=== PATIENT | male | born 1945 | race Caucasian/White ===

== ENCOUNTER 2017-09-18 15:16 | Inpatient (IN) | payer MEDICARE, MEDICAID ==
[~2017-09-18] VITALS: Ht 182.9 cm; Wt 115.5 kg
--- NOTE | ~2017-09-18 | HP ---
PATIENT: RIGOBERTO JOHNSON MEDICAL RECORD: [id number] ACCOUNT: [id number] LOCATION:[facility].2109 : 44 ADMISSION DATE: 09/18/17 HISTORY AND PHYSICAL EXAMINATION ADMITTING PHYSICIAN: Mark Muller MD REASON FOR ADMISSION: Chest pain and fatigue. HISTORY OF PRESENT ILLNESS: The patient is a 71-year-old male with history of metabolic syndrome, ALISTAIR, and essential hypertension. The patient states for the last 6 months he has had fatigue, walking for 2 miles a day for the last year, but has been getting more difficult over the last six months and certainly over the last 1 month. His daughter states she saw him bend over his car to catch his breath one day after walking. He states now he walks any distance at all he has chest discomfort. There is substernal radiation into his left upper arm at times. He gets short of breath walking more than 10 feet. He denies fever or cough. Today, he was driving home, a [address] to his home, he had onset of severe substernal chest pain radiating to his upper left shoulder and down to the elbow. He did not come to the hospital, went home. When he got home, called EMS, he was diaphoretic. He was given sublingual Nitro spray en route with some improvement in his symptoms. He is now having some intermittent chest pain that is improved. PAST MEDICAL HISTORY: AODM, obesity, obstructive sleep apnea, gout, GERD, hyperlipidemia, hypertension, bronchiectasis right middle lobe, diabetic neuropathy. FAMILY HISTORY: Father of heart disease, mother had VT at 45 and from multivessel disease. Sister who has had cardiac disease and a brother who had a stroke. REVIEW OF SYSTEMS: CONSTITUTIONAL: Fatigue for the last 6 months. No weight change. HEENT: No recent visual change, sinus congestion, or sore throat. RESPIRATORY: He has exertional shortness of breath with any walking. CARDIAC: He has had exertional chest pain daily for the last 2-3 months. NEUROLOGICAL: No history of stroke, TIA. PHYSICAL EXAMINATION: VITAL SIGNS: His blood pressure was 176/90, heart rate is 90 and regular, respirations are 18, he is afebrile. His height is 5 feet 10 inches, weight of 252 pounds, for 36 BMI. GENERAL: He is alert and oriented, lying on the cot in the ED. HEAD, EYES, EARS, NOSE, AND THROAT: His eyes are clear. Oropharynx is unremarkable. NECK: Supple, without bruits. CHEST: Distant breath sounds without wheeze or rales. HEART: Regular rate and rhythm. Chest wall is nontender. ABDOMEN: Obese, soft, nontender. GENITOURINARY: Deferred. EXTREMITIES: He has 2+ mild pedal and 1+ pretibial edema to the knees bilaterally. NEUROLOGICAL: He is oriented to person, place, and time. Cranial nerves are grossly intact. HISTORY AND PHYSICAL [id number] RIGOBERTO JOHNSON LABORATORY DATA: EKG shows T-wave inversions in I, II, and L, and IV, V, and . BUN and creatinine are 28 and 1.4 respectively. Cholesterol 171, LDL of 77, HDL of 45. H&H is 11.5 and 38.8. ASSESSMENT: Heart disease. PLAN: The patient admitted. TRANSINT:[id number] Voice Confirmation ID: [id number] DOCUMENT ID: [id number] LEONOR MELVIN MD at 1914 CC: [id number] DICTATION DATE: 09/18/171946 MEAT HANGER: 09/19/[address] [facility] [address] [place] [address]
--- NOTE | ~2017-09-18 | CN ---
PATIENT NAME:RIGOBERTO JOHNSON MEDICAL RECORD: [id number] : 43 LOCATION:D. D.2110 ADMIT DATE: 09/19/17 ACCOUNT: [id number] CONSULTING PHYSICIAN: BUTCH ACOSTA MD REFERRING PHYSICIAN: LEONOR MELVIN MD DATE OF CONSULTATION: 09/18/2017 HISTORY OF PRESENT ILLNESS: A 71-year-old gentleman with no known history of coronary artery disease. He has a history of diabetes. Actually, he is quite active and tries to walk 2 miles, but he has noticed over the last longer than 6 months progressive classic angina, chest tightness and pressure with exertion, radiating to jaw, had episode of chest pain yesterday. ECG and enzymes consistent with NSTEMI. He was brought to construction laborer on an urgent basis. PAST MEDICAL HISTORY: 1. History of diabetes mellitus. 2. Dyslipidemia. ALLERGIES: None known. MEDICATIONS: Include allopurinol 100 mg, insulin, NovoLog per scale. SOCIAL HISTORY: . He is a nonsmoker. Easily takes care of all the ADLs, tries to exercise. REVIEW OF SYSTEMS: The patient reports easy bruising but reports no swollen glands. The patient reports no fever, no night sweats, no significant weight gain, no significant weight loss. No significant exercise tolerance. The patient reports no dry eyes, no irritation, no vision change. Patient reports no difficulty hearing and no ear pain. Patient reports no frequent nose bleeds or nose and sinus problems. Patient reports on arm pain on exertion. No shortness of breath while lying down. No history of heart murmur. Patient reports no cough, no wheezing or coughing up blood. Patient reports no abdominal pain, no vomiting. Normal appetite. No diarrhea and not vomiting blood. No nausea and no constipation. Patient reports no incontinence. No difficulty urinating. No hematuria. No increased frequency. Patient reports no muscle aches. No weakness, no arthralgias, no back pain. No swelling of the extremities. Patient reports no abnormal mole, no jaundice, no rashes. Reports no loss of consciousness. No weakness and no numbness. No seizures, dizziness, or headaches. The patient reports no depression, no sleep disturbance, feeling safe in a relationship and no alcohol abuse. Patient reports on fatigue. Reports no runny nose or sinus pressure. No itching, no hives, and no frequent sneezing. PHYSICAL EXAMINATION: GENERAL: Pleasant gentleman in no acute distress. VITAL SIGNS: Blood pressure 155/77, pulse 85 and regular. HEENT: Normocephalic, atraumatic. NECK: No JVD or bruit. HEART: Regular, questionable S4 gallop. LUNGS: Good air excursion. ABDOMEN: Soft, nontender. EXTREMITIES: Pulses are preserved, 2+ with no edema. DIAGNOSTIC DATA: ECG shows diffuse ST-T changes laterally. CONSULT REPORT [id number] RIGOBERTO JOHNSON IMPRESSION: Non-ST elevation myocardial infarction. PLAN: For diagnostic angiography, intervention based on the above. TRANSINT:[id number] Voice Confirmation ID: [id number] DOCUMENT ID: [id number] BUTCH ACOSTA MD at 1129 CC: [id number] DICTATION DATE: 09/19/17915 HEALTH EDUCATION ASSISTANT: 09/19/17 1207 ADM IN [place] [id number] [place] [address]
--- NOTE | ~2017-09-18 | OP ---
PATIENT NAME: RIGOBERTO JOHNSON MEDICAL RECORD: [id number] :43 LOCATION:D.M2 D.2110 ADMISSION DATE:09/19/17 SURGEON: BUTCH ACOSTA MD DATE OF OPERATION: 09/19/2017 PROCEDURE: Left heart cath, selective coronary angiography, right femoral approach. CATHETERS: A 5-Malian sheath, 5/4 left and right José Luis, 5/4 pig. The procedure was well tolerated and proceeded immediately to PTCA and stenting of the LAD after the procedure was finished. FINDINGS: Left ventriculography in 30-degree STEVENSON view: Actually normal wall motion, normal systolic function, EF is greater than or equal to 55%. CORONARY ANATOMY: 1. Left main: Left main is free of disease. 2. LAD: LAD has a diffuse proximal stenosis of 90% at its tightest portion, this is from the first septal financial compliance examiner involving the first diagonal. 3. Circumflex: Left dominant system, free of disease. 4. Right coronary artery: Rudimentary, free of disease. IMPRESSION: Plan intervention of LAD momentarily. DESCRIPTION OF PROCEDURE: A 5-Malian sheath was exchanged for a 6-Malian sheath. XB LAD 0.035 catheter provided good guide catheter support followed by a 300 cm Whisper wire was placed across the tightly occluded diffusely diseased LAD distal portion of vessel. Pre-deployment balloon used was a 3.0 x 15 mm Lee up to 12 atmospheres. Stents were placed in the following fashion. A 3.0 x 22 mm Elijah drug-eluting stent was placed to cover the distal portion lesion up to 14 atmospheres, 3.0 x 15 mm [place] drug-eluting stent to cover the more proximal area again up to 14 atmospheres. Each inflation lasting 45 seconds. Final injection shows excellent resolution of diffuse 90% stenosis, no significant residual. TERRELL flow was 3 throughout the procedure. Heparin and Integrilin was used in the case. Sheath closed with ExoSeal device. Plavix was loaded in the lab. TRANSINT:[id number] Voice Confirmation ID: [id number] DOCUMENT ID: [id number] BUTCH ACOSTA MD at 1129 CC: [id number] DICTATION DATE: 09/19/17 1038 FLY RAISER LOCKSTITCH: 09/19/17 1255 ADM IN [address] [place] [address]
--- NOTE | ~2017-09-18 | HEMODYNAMI ---
PATIENT:RIGOBERTO JOHNSON MEDICAL RECORD: [id number] : 43 [id number] ADMISSION DATE: 09/18/17 Generatedon:09/19/201710:44 Patient name: RIGOBERTO JOHNSON Patient #: [id number] SSN: : 1945 Date of study: 09/19/2017 Page: Of Hemodynamic Procedure Report Patient Data Patient Demographics Procedure consent was obtained First Name: RIGOBERTO Gender: Male Last Name: ELIZABETH : 1945 Patient #: [id number] Age: 71 year(s) Race: Unknown Additional ID: [id number] Contact details Address: [address] [place] [address] State: [place] City: [place] Zip code: [address] Past Medical History Allergies: No known allergies Admission Admission Data Admission Date: 09/18/2017 Admission Time: 18:30 Room #: [facility] Lab Results Lab Result Date: 09/19/2017 Lab Result Time: 0:00 Biochemistry Name Units Result Min Max BUN mg/dl 28 --(----)-* 7 18 Creatinine mg/dl 1.7 --(----)-* 0.6 1.3 CBC Name Units Result Min Max Hemoglobin g/dl 12.9 -*(----)-- 13.5 17.5 Procedure Procedure Types Cath Procedure Diagnostic Procedure [facility] w/Coronaries PCI Procedure Coronary Stent Coronary Stent Initial Miscellaneous Procedures Moderate Sedation up to 30 minutes Procedure Description Procedure Date Procedure Date: 09/19/2017 Procedure Start Time: 10:07 Procedure End Time: 10:33 Procedure Staff Name Function Diego Ferris MD Performing Physician Ivette Syed RT Monitor Karan Barajas RN Nurse Kellie Castro RT Scrub Procedure Data Cath Procedure Fluoroscopy Diagnostic fluoroscopy Total fluoroscopy Time: 6.8 time: 6.8 min min Diagnostic fluoroscopy Total fluoroscopy dose: dose: 1191 mGy 1191 mGy Contrast Material Contrast Material Type Amount (ml) Isovue 300 142 Entry Location Entry Primary Successful Side Size Upsize Upsize Entry Closure Succes sful Closure Location (Fr) 1 (Fr) 2 (Fr) Remarks Device Remarks Femoral Right 5 Fr 6 Fr Exoseal artery Short Estimated blood loss: 5 ml Diagnostic catheters Device Type Used For End Catheter Placement MULTIPACK JL 4.0 5Fr Left Coronary catheter Angiography MULTIPACK 3DRC 5Fr Right Coronary catheter Angiography MULTIPACK Pigtail 5 Fr LV Angiography catheter Procedure Complications No complications Procedure Medications Medication Administration Route Dosage 0.9% NaCl I.V. 100 ml/hr Oxygen NC 2 l/min Heparin Flush Bag added to field 2 bags (1000units/500ml NS) Lidocaine 2% added to field 20 Versed I.V. 1 mg Fentanyl I.V. 50 mcg Fentanyl I.V. 25 mcg Heparin Bolus I.V. 5000 units Integrilin (Bolus I.V. 10.7 ml 2mg/ml) Integrilin (Bolus wasted 9.3 ml 2mg/ml) Fentanyl I.V. 25 mcg Versed I.V. 1 mg Fentanyl I.V. 50 mcg Fentanyl I.V. 50 mcg Hemodynamics Rest HGB: 12.9 (g/dl) Heart Rate: 92 (bpm) Pressure Samples Time Site Value (mmHg) Purpose Heart Use Rate(bpm) 10:12 LV 111/-2,2 Snapshot 92 10:13 AO 109/54(79) Pullback 91 10:13 LV 104/2,7 Pullback 91 Gradients Valve Time Site 1 Site 2 Mean SEP/DFP Peak To Heart Use (mmHg) (sec/min) Peak Rate (mmHg) (bpm) Aortic 10:13 LV AO 0 6 0 91 104/2,7 109/54(79) Calculations Valve P-P Mean Valve Index Valve Source Name Gradient Area Flow (cm2) Aortic 0 0 0 0 Snapshots Pre Cath Intra NCS Post Cath Vital Signs Time Heart Resp SPO2 etCO2 NIBP (mmHg) Rhythm Pain Status Sedation Rate (ipm) (%) (mmHg) Level (bpm) 9:48:02 88 18 100 0 174/85(130) NSR 0 (11) , No 10(A) pain 9:52:45 86 16 96 0 145/75(113) NSR 0 (11) , No 10(A) pain 9:57:27 85 14 99 0 137/79(122) NSR 0 (11) , No 10(A) pain 10:02:12 89 14 99 0 140/84(121) NSR 0 (11) , No 10(A) pain 10:06:59 92 18 92 0 139/71(105) NSR 0 (11) , No 10(A) pain 10:12:25 92 15 98 0 132/66(93) NSR 0 (11) , No 10(A) pain 10:17:03 95 15 99 0 132/85(114) NSR 0 (11) , No 10(A) pain 10:21:46 95 13 99 0 133/80(100) NSR 0 (11) , No 10(A) pain 10:26:27 97 18 100 0 136/90(113) NSR 0 (11) , No 10(A) pain 10:31:07 96 15 100 0 154/93(127) NSR 9 (11) , 10(A) Excruciating unbearable 10:43:59 91 10 97 0 Measuring NSR 0 (11) , No 10(A) pain Medications Time Medication Route Dose Verified Delivered Reason Notes Effectiveness by by 9:52:13 0.9% NaCl I.V. 100 Karan Karan Per physician ml/hr Karl Barajas RN RN 9:52:28 Oxygen NC 2 Karan Karan Per physician l/min Karl Barajas RN RN 9:52:40 Heparin Flush added 2 Karan Karan used for Bag to bags Karl Barajas procedure (1000units/500ml RN RN NS) 9:52:57 Lidocaine 2% added 20ml Karan Karan for local to vial Karl Barajas anesthetic field MCGOVERN RN 10:01:51 Versed I.V. 1 mg Karan Karan for sedation Karl Barajas RN RN 10:02:06 Fentanyl I.V. 50 Karan Karan for sedation mcg Karl Barajas RN RN 10:07:57 Fentanyl I.V. 25 Karan Karan for sedation mcg Karl Barajas RN RN 10:17:23 Heparin Bolus I.V. 5000 Karan Karan for units Karl Barajas anticoagulation RN RN 10:17:41 Integrilin I.V. 10.7 Karan Karan for (Bolus 2mg/ml) ml Karl Barajas antiplatelet RN RN therapy 10:19:41 Integrilin wasted 9.3 Karan Karan to sharp's (Bolus 2mg/ml) ml Karl Barajas RN RN 10:25:44 Fentanyl I.V. 25 Karan Karan for sedation mcg Karl Braajas RN RN 10:25:54 Versed I.V. 1 mg Karan Karan for sedation Karl Barajas RN RN 10:35:15 Fentanyl I.V. 50 Karan Karan for chest pain mcg Karl Barajas RN RN 10:37:45 Fentanyl I.V. 50 Karan Karan for chest pain mcg Karl Barajas RN matcher offbearer Log Time Note 9:46:26 Kellie Matthew RT(R) sent for patient. Start room use. 9:46:30 Time tracking: Call back 9:46:44 Plan of Care:Hemodynamics will remain stable., Cardiac rhythm will remain stable., Comfort level will be maintained., Respiratory function will remain adequate., Patient/ family verbilizes understanding of procedure., Procedure tolerated without complication., Recovers from procedure without complications.. 9:46:49 Patient received from Med II to CCL 1 Alert and oriented. Tansferred to table in Supine position. 9:46:50 Warm blankets applied, and noreen hugger turned on for patient comfort. 9:46:51 Correct patient and procedure confirmed by team. 9:46:54 Signed procedure consent form obtained from patient. 9:46:57 ECG and BP/O2 sat monitors applied to patient. 9:46:59 Vital chart was started 9:47:00 Baseline sample Acquired. 9:47:02 Full Disclosure recording started 9:47:11 H&P Date Dictated: 09/18/2017 Within 30 days and on chart.. 9:47:13 Pre-procedure instructions explained to patient. 9:47:15 Family in waiting room. 9:47:17 Patient NPO since Midnight. 9:47:27 Patient allergic to No known allergies 9:47:30 Is the patient allergic to Iodine/contrast media? No. 9:47:32 Was the patient premedicated? Yes 9:47:33 Is patient on blood thinner?No 9:47:35 Patient diabetic? Yes. 9:47:37 If diabetic: On Metformin? No 9:47:41 Previous problem with sedation/anesthesia? No ? 9:47:44 Snore? Yes 9:47:46 Sleep apnea? Yes 9:47:53 Airway obstruction? Yes Asthma 9:47:59 Patient pain scale 0/10 ?. 9:48:07 IV patent on arrival in left hand with 0.9% NaCl at [facility]. 9:48:14 Lab results completed and on chart. 9:48:20 Right groin area was prepped with chlora-prep and draped in sterile fashion 9:48:22 Alarms reviewed by RXenia N. 9:48:22 Sharps counted by scrub and verified by R.N. 9:48:24 Physician paged 9:50:04 Lab Result : Hemoglobin 12.9 g/dl 9:50:04 Lab Result : Creatinine 1.7 mg/dl 9:50:04 Lab Result : BUN 28 mg/dl 9:52:13 0.9% NaCl 100 ml/hr I.V. was administered by Karan Barajas RN; Per physician; 9:52:28 Oxygen 2 l/min NC was administered by Karan Barajas RN; Per physician; 9:52:40 Heparin Flush Bag (1000units/500ml NS) 2 bags added to field was administered by Karan Barajas RN; used for procedure; 9:52:57 Lidocaine 2% 20ml vial added to field was administered by Karan Barajas RN; for local anesthetic; 10:01:06 Physician arrived 10:01:07 --------ALL STOP TIME OUT------ 10:01:08 Final Timeout: patient, procedure, and site verified with staff and physician. All members of the team are in agreement. 10:01:10 Right groin site verified by team. 10:01:14 Physical assessment completed. ASA score P 2 - A patient with mild systemic disease as per Diego Ferris MD. 10:01:19 Sedation plan: IV Moderate Sedation Medication:Versed, Fentanyl 10:01:32 Use device set Femoral Dx 10:01:33 ACIST Syringe (52721) opened to sterile field. 10:01:33 Bag Decanter (2002) opened to sterile field. 10:01:34 Medline Cath Pack (DMLL92289) opened to sterile field. 10:01:34 SHEATH 5FR Mobile (ZNI127) opened to sterile field. 10:01:35 DIAGNOSTIC WIRE .035 260cm J wire (257908) opened to sterile field. 10:01:36 ACIST Hand Control (73660) opened to sterile field. 10:01:37 ACIST Manifold (29402) opened to sterile field. 10:01:38 DIAGNOSTIC Multipack 5Fr catheter set (TV0699) opened to sterile field. 10:01:39 Tegaderm 4 x 4 (1626W) opened to sterile field. 10:01:51 Versed 1 mg I.V. was administered by Karan Barajas RN; for sedation; 10:02:06 Fentanyl 50 mcg I.V. was administered by Karan Barajas RN; for sedation; 10:06:08 Procedure started. 10:07:40 Local anesthetic to right femoral artery with Lidocaine 2% by Diego Ferris MD.INITIAL ACCESS ONLY 10:07:50 A 5 Fr sheath was inserted into the Right Femoral artery 10:07:57 Fentanyl 25 mcg I.V. was administered by Karan Barajas RN; for sedation; 10:08:00 A MULTIPACK JL 4.0 5Fr catheter was advanced over the wire and used for Left Coronary Angiography. 10:09:00 LCA angiography performed. 10:09:03 Injector settings: Ml/sec: 3, Volume: 6, 10:11:26 Catheter removed. 10:11:31 A MULTIPACK 3DRC 5Fr catheter was advanced over the wire and used for Right Coronary Angiography. 10:11:34 RCA angiography performed. 10:11:36 Injector settings: Ml/sec: 3, Volume: 6, 10:11:38 Catheter removed. 10:11:44 A MULTIPACK Pigtail 5 Fr catheter was advanced over the wire and used for LV Angiography. 10:12:52 LV hemodynamics recorded. 10:12:53 LV gram done using STEVENSON 10:12:56 Injector settings: Ml/sec: 5, Volume: 15, 10:13:04 EF : 55 % 10:13:06 Catheter removed. 10:13:06 Proceeding to intervention. 10:13:35 SHEATH 6FR Mobile (BGU443) opened to sterile field. 10:13:36 INFLATOR Merit BasixCompak (UT9104) opened to sterile field. 10:13:37 WHISPER 300cm guide wire ([id number]) opened to sterile field. 10:14:19 GUIDE 6FR XBLAD 4.0 catheter (02514131) opened to sterile field. 10:14:30 Sheath upsized to a 6 Fr Short. 10:14:41 6 Fr xblad 4 guide catheter was inserted over the wire 10:16:01 Guide Catheter removed. unable to cannulate vessel. 10:16:06 GUIDE 6FR XBLAD 3.5 catheter ([id number]) opened to sterile field. 10:16:16 6 Fr xblad 3.5 guide catheter was inserted over the wire 10:17:23 Heparin Bolus 5000 units I.V. was administered by Karan Barajas RN; for anticoagulation; 10:17:41 Integrilin (Bolus 2mg/ml) 10.7 ml I.V. was administered by Karan Barajas RN; for antiplatelet therapy; 10:17:45 whisper wire advanced. 10:19:41 Integrilin (Bolus 2mg/ml) 9.3 ml wasted was administered by Karan Barajas RN; to sharp's; 10:22:01 Inflation number: 1 A EMERGE OTW 3.0 x 15 stent ([id number]) was prepped and advanced across the Mid LAD, then inflated to 12 NIRMALA for 0:30 (min:sec). 10:22:35 Inflation number: 2 The EMERGE OTW 3.0 x 15 stent ([id number]) was reinflated across the Mid LAD, to 14 NIRMALA for 0:30 (min:sec). 10:23:04 Balloon removed over the wire. 10:25:44 Fentanyl 25 mcg I.V. was administered by Karan Barajas RN; for sedation; 10:25:54 Versed 1 mg I.V. was administered by Karan Barajas RN; for sedation; 10:26:08 Inflation Number: 3 A YANETH OTW 3.0 x 22 stent ([id number]) was prepped and advanced across the Mid LAD. The stent was deployed at 14 NIRMALA for 0:30 (min:sec). 10:27:18 Stent catheter was removed intact over wire. 10:29:24 Inflation Number: 1 A YANETH OTW 3.0 x 15 stent ([id number]) was prepped and advanced across the Prox LAD. The stent was deployed at 14 NIRMALA for 0:30 (min:sec). 10:29:49 Stent catheter was removed intact over wire. 10:29:50 Wire removed. 10:29:50 Guide catheter removed. 10:29:59 EXOSEAL 6Fr (EX600) opened to sterile field. 10:30:10 Sheath removed intact; hemostasis achieved with Exoseal to the Right Femoral artery. 10:30:12 Procedure ended.(Physican Out) 10:30:49 Fluoroscopy time 06.80 minutes. 10:31:09 Fluoroscopy dose: 1191 mGy 10:31:09 Flurop Dose total: 1191 10:31:51 Contrast amount:Isovue 300 142ml. 10:31:53 Sharps counted by scrub and verified by R.N. 10:31:55 Insertion/operative site no bleeding no hematoma. 10:31:58 Post-op/insertion site Right Femoral artery dressed using a 4 x 4 and Tegaderm. 10:32:01 Post right femoral artery:stable 10:32:04 Post Procedure Pulses reassessed and unchanged 10:32:07 Post procedure rhythm: unchanged. 10:32:09 Estimated blood loss: 5 ml 10:32:11 Post procedure instruction explained to patient.Patient verbalizes understanding. 10:32:12 Patient needs reinforcement of post procedure teaching. 10:32:49 Procedure type changed to Cath procedure, Diagnostic procedure, LHC, LHC w/Coronaries, PCI procedure, Coronary Stent, Coronary Stent Initial, Miscellaneous Procedures, Moderate Sedation up to 30 minutes 10:32:50 Procedure and supply charges have been captured, reviewed, submitted and are correct. 10:32:56 Procedure Complication : No complications 10:32:58 Vital chart was stopped 10:32:58 See physician's report for complete and final results. 10:33:01 Report given to [facility]. 10:33:12 Patient transfered to [facility] with Stretcher. 10:33:15 Procedure ended. 10:33:15 Full Disclosure recording stopped 10:33:22 ACC-PCI Only Patient was given prescriptions, or instructed by Diego Ferris MD to start/continue the following medications upon discharge: Plavix 10:33:24 End room use (Document Last) 10:35:15 Fentanyl 50 mcg I.V. was administered by Karan Barajas RN; for chest pain; 10:37:45 Fentanyl 50 mcg I.V. was administered by Karan Barajas RN; for chest pain; 10:42:49 Vital chart was started 10:43:25 Femstop placed over the right femoral artery at 170 mmHg. Hemostasis achieved. 10:43:36 FEMSTOP Gold (R09535) opened to sterile field. 10:44:52 Vital chart was stopped Intervention Summary Intervention Notes Time ActionType Lesion and Equipment Action# Pressure Duration Attributes Used 10:22:01 Inflate Mid LAD EMERGE OTW 1 12 00:30 balloon 3.0 x 15 stent ([id number]) 10:22:35 Reinflate Mid LAD EMERGE OTW 2 14 00:30 balloon 3.0 x 15 stent ([id number]) 10:26:08 Place stent Mid LAD YANETH OTW 3.0 3 14 00:30 x 22 stent ([id number]) 10:29:24 Place stent Prox LAD YANETH OTW 3.0 1 14 00:30 x 15 stent ([id number]) Device Usage Item Name Manufacture Quantity Catalog Number Hospital Part Current M inimal Lot# / Charge Number Stock Stock Serial# Code ACIST Syringe Acist 1 01573 414485 334716 165216 2 0 (26518) Medical Systems Inc Bag Decanter Microtek 1 2001S 297445 59877 666353 5 (2001S) Medical Inc. Medline Cath Cardinal 1 [id number] 697402 32268 904170 5 Pack Health ([id number]) SHEATH 5FR Terumo 1 VOY658 209557 045976 252141 4 0 Mobile (GDS127) DIAGNOSTIC St Vel 1 023241 055699 438479 370160 3 0 WIRE .035 260cm J wire (325773) ACIST Hand Acist 1 34805 704007 265382 296574 5 Control Medical (10998) Systems Inc ACIST Acist 1 46775 353502 407994 250525 5 Manifold Medical (77199) Systems Inc DIAGNOSTIC Cardinal 1 LC7625 915444 81131 136940 3 0 Multipack 5Fr Health catheter set (BU8761) Tegaderm 4 x 3M 1 1626W 748384 136215 966627 5 4 (1626W) MULTIPACK JL Cardinal 1 904516 5 4.0 5Fr Health catheter MULTIPACK Cardinal 1 025635 5 3DRC 5Fr Health catheter MULTIPACK Cardinal 1 875522 5 Pigtail 5 Fr Health catheter SHEATH 6FR Terumo 1 KRF550 441252 622020 873873 4 0 Mobile (ILA370) INFLATOR Merit 1 AN3225 007908 017616 685346 1 5 [facility] Medical BasixCompak (RG7971) WHISPER 300cm Billy 1 [id number] 862374 855974 699773 5 guide wire Vascular ([id number]) GUIDE 6FR Cardinal 1 19864024 898942 617599 207033 3 XBLAD 4.0 Health catheter (15345293) GUIDE 6FR Cardinal 1 [id number] 957886 991515 150507 1 0 XBLAD 3.5 Health catheter (03683349) EMERGE OTW [place] 1 [id number] 280085 165718 640293 5 [id number] 3.0 x 15 Scientific stent ([id number]) YANETH OTW 3.0 Medtronic 1 [id number] 147076 1924546 988227 5 [id number] x 22 stent ([id number]) YANETH OTW 3.0 Medtronic 1 [id number] 158588 049600 543078 5 [id number] x 15 stent ([id number]) EXOSEAL 6Fr Cardinal 1 EX600 099707 412023 438895 1 0 (EX600) Health FEMSTOP Gold St Vel 1 O35737 834078 745971 756416 5 ([id number]) Signature Audit [place] Stage Time Signature Unsigned Intra-Procedure 09/19/2017 Ivette Syed 10:44:49 AM RT(R) Signatures Monitor : Ivette Syed RT Signature : Date : Time : [facility] [address] [place] [address]
[2017-09-18 15:46] LABS: BASOPHILS 0.3 % (0-2); EOSINOPHILS 5.9 % (0-7); HEMATOCRIT 38.8 % (42.0-54.0); HEMOGLOBIN 13.5 g/dL (13.5-17.5); IMMATURE GRANULOCYTES 0.3 % (0-5); MCH 33.6 pg (26.0-34.0); MCHC 34.8 g/dL (31.0-37.0); MCV 96.5 fL (80.0-100.0); MEAN PLATELET VOLUME 10.3 fL (7.4-10.4); MONOCYTES 9.5 % (2-11); PLATELET COUNT 111 10x3/uL (130-400); RBC 4.02 10x6/uL (4.20-6.10); RDW 13.8 % (11.5-14.5); WBC 6.4 10x3/uL (4.8-10.8)
[2017-09-18 16:10] LABS: ALBUMIN 3.1 g/dL (3.4-5.0); ALKALINE PHOSPHATASE 67 U/L (46-116); ALT (SGPT) 42 U/L (10-68); BILIRUBIN - TOTAL 0.45 mg/dL (0.2-1.3); CALC OSMOLALITY 289 mosm/kg (275-300); CALCIUM 9.8 mg/dL (8.5-10.1); CARBON DIOXIDE 23.4 mmol/L (21.0-32.0); CHLORIDE - SERUM 106 mmol/L (98-107); CREATININE - SERUM 1.8 mg/dL (0.6-1.3); GLUCOSE 194 mg/dL (74-106); POTASSIUM - SERUM 4.2 mmol/L (3.5-5.1); PROTEIN - SERUM 8.2 g/dL (6.4-8.2); SODIUM 140 mmol/L (136-145); UREA NITROGEN 28 mg/dL (7-18); eGFR NON AFRICAN AMERICAN 40 mL/min (90-120)
[2017-09-18 16:21] LABS: CHOL - HDL RATIO 4.9 ratio (2.3-4.9); CHOLESTEROL, TOTAL 171 mg/dL (0-200); CKMB 56.4 U/L (0.0-3.6); CREATINE KINASE 143 UL (21-232); HDL CHOLESTEROL 35 mg/dL (32-96); LDL CHOLESTEROL 77 mg/dL (0-100); LDL-HDL RATIO 2.2 ratio (1.5-3.5); TRIGLYCERIDE 296 mg/dL (30-200)
[2017-09-18 16:22] LABS: TROPONIN-I < 0.017 ng/mL (0.000-0.060)
[2017-09-18 19:00] VITALS: BP 185/79
[2017-09-18] MEDS ORDERED: LEVEMIR FLEXTOUCH 10 ×2 (22:07→22:08)
[2017-09-18] MEDS ORDERED: FLUTICASONE PRO16 GM NASAL (22:09)
[2017-09-18] MEDS ORDERED: ZYLOPRIM100 MG PO (22:10)
[2017-09-18] MEDS ORDERED: NOVOLOG100 U/M1 (22:11)
[2017-09-18] MEDS ORDERED: FLOMAX0.4 MG PO (22:11)
[2017-09-18 22:43] LABS: CKMB 75.1 U/L (0.0-3.6); CREATINE KINASE 338 UL (21-232)
[2017-09-18 22:44] LABS: TROPONIN-I 0.596 ng/mL (0.000-0.060)
[2017-09-19 03:34] VITALS: BMI 35.3
[2017-09-19 03:46] LABS: CALC OSMOLALITY 287 mosm/kg (275-300); CALCIUM 9.9 mg/dL (8.5-10.1); CARBON DIOXIDE 22.9 mmol/L (21.0-32.0); CHLORIDE - SERUM 105 mmol/L (98-107); CKMB 126.9 U/L (0.0-3.6); CREATININE - SERUM 1.7 mg/dL (0.6-1.3); GLUCOSE 171 mg/dL (74-106); POTASSIUM - SERUM 4.2 mmol/L (3.5-5.1); SODIUM 139 mmol/L (136-145); UREA NITROGEN 29 mg/dL (7-18); eGFR NON AFRICAN AMERICAN 42 mL/min (90-120)
[2017-09-19 03:47] LABS: CREATINE KINASE 587 UL (21-232); TROPONIN-I 3.508 ng/mL (0.000-0.060)
[2017-09-19 04:00] VITALS: BP 188/84
[2017-09-19 07:43] VITALS: BP 155/77
[2017-09-19 08:17] LABS: CKMB 168.7 U/L (0.0-3.6)
[2017-09-19 08:19] LABS: CREATINE KINASE 768 UL (21-232)
[2017-09-19 08:20] LABS: TROPONIN-I 8.429 ng/mL (0.000-0.060)
[2017-09-19 09:19] LABS: BASOPHILS 0.3 % (0-2); EOSINOPHILS 5.5 % (0-7); HEMATOCRIT 37.9 % (42.0-54.0); HEMOGLOBIN 12.9 g/dL (13.5-17.5); IMMATURE GRANULOCYTES 0.2 % (0-5); LYMPHOCYTES 34.1 % (15-50); MCH 33.1 pg (26.0-34.0); MCV 97.2 fL (80.0-100.0); MEAN PLATELET VOLUME 11.1 fL (7.4-10.4); MONOCYTES 10.4 % (2-11); NEUTROPHILS 49.5 % (40-80); PLATELET COUNT 104 10x3/uL (130-400); RDW 14.1 % (11.5-14.5); WBC 5.9 10x3/uL (4.8-10.8)
[2017-09-19 09:21] LABS: ANION GAP 18.6 mmol/L (8-16); CALCIUM 9.6 mg/dL (8.5-10.1); CARBON DIOXIDE 17.8 mmol/L (21.0-32.0); CREATININE - SERUM 1.7 mg/dL (0.6-1.3); POTASSIUM - SERUM 4.4 mmol/L (3.5-5.1)
[2017-09-19 11:07] VITALS: Ht 182.9 cm; Wt 115.5 kg
[2017-09-19 15:52] VITALS: BP 163/82
[2017-09-19 20:00] VITALS: BP 144/78
[2017-09-19 21:26] VITALS: BP 144/78
[2017-09-20] VITALS: BP 127/81
[2017-09-20 01:29] VITALS: BP 127/81
[2017-09-20 08:22] VITALS: BP 165/87
[2017-09-20] MEDS ORDERED: NITROQUICK0.4 MG SL (09:47)
[2017-09-20] MEDS ORDERED: ASPIRIN325 MG PO (09:48)
[2017-09-20] MEDS ORDERED: LISINOPRIL10 MG PO (09:49)
[2017-09-20] MEDS ORDERED: LIPITOR40 MG PO (09:50)
== END 2017-09-20 11:42 | disposition home or self-care (01) | DRG 247 ==
LOC: D.ER 15:16 → OBSVTIME 18:30 → D.M2 18:30
PROVIDERS: Emergency Medicine; Family Medicine; Internal Medicine Interventional Cardiology
PROC: 4A023N7 Measurement of Cardiac Sampling and Pressure, Left Heart, Percutaneous Approach (ICD-10-PCS; 2017-09-19)
PROC: B2111ZZ Fluoroscopy of Multiple Coronary Arteries using Low Osmolar Contrast (ICD-10-PCS; 2017-09-19)
PROC: B2151ZZ Fluoroscopy of Left Heart using Low Osmolar Contrast (ICD-10-PCS; 2017-09-19)
PROC: 027035Z Dilation of Coronary Artery, One Artery with Two Drug-eluting Intraluminal Devices, Percutaneous Approach (ICD-10-PCS; principal; 2017-09-19 09:46)
DX: I21.4 Non-ST elevation (NSTEMI) myocardial infarction (principal); I25.110 Atherosclerotic heart disease of native coronary artery with unstable angina pectoris; G47.33 Obstructive sleep apnea (adult) (pediatric); I10 Essential (primary) hypertension; E11.40 Type 2 diabetes mellitus with diabetic neuropathy, unspecified; E66.9 Obesity, unspecified; K21.9 Gastro-esophageal reflux disease without esophagitis; E78.5 Hyperlipidemia, unspecified; E88.81 Metabolic syndrome and other insulin resistance; Z87.891 Personal history of nicotine dependence; Z68.36 Body mass index [BMI] 36.0-36.9, adult

== ENCOUNTER 2017-10-07 12:27 | Emergency (ER) | payer MEDICARE, MEDICAID ==
[2017-09-19 11:07] VITALS: BMI 34.5
[~2017-10-07 12:27] MED LIST: ASPIRIN325 MG PO; FLOMAX0.4 MG PO; FLUTICASONE PRO16 GM NASAL; LEVEMIR FLEXTOUCH 10; LIPITOR40 MG PO; LISINOPRIL10 MG PO; NITROQUICK0.4 MG SL; NOVOLOG100 U/M1; ZYLOPRIM100 MG PO
[2017-10-07 13:28] LABS: ALBUMIN 2.9 g/dL (3.4-5.0); ALKALINE PHOSPHATASE 68 U/L (46-116); ALT (SGPT) 41 U/L (10-68); BILIRUBIN - TOTAL 0.52 mg/dL (0.2-1.3); CALC OSMOLALITY 288 mosm/kg (275-300); CALCIUM 8.7 mg/dL (8.5-10.1); CARBON DIOXIDE 21.5 mmol/L (21.0-32.0); CHLORIDE - SERUM 108 mmol/L (98-107); CREATININE - SERUM 1.8 mg/dL (0.6-1.3); POTASSIUM - SERUM 4.1 mmol/L (3.5-5.1); PROTEIN - SERUM 7.8 g/dL (6.4-8.2); SODIUM 140 mmol/L (136-145); UREA NITROGEN 30 mg/dL (7-18); eGFR NON AFRICAN AMERICAN 40 mL/min (90-120)
[2017-10-07 13:30] LABS: GLUCOSE 172 mg/dL (74-106)
[2017-10-07 13:42] LABS: BASOPHILS 0.2 % (0-2); EOSINOPHILS 8.1 % (0-7); HEMATOCRIT 35.5 % (42.0-54.0); HEMOGLOBIN 11.7 g/dL (13.5-17.5); IMMATURE GRANULOCYTES 0.2 % (0-5); LYMPHOCYTES 38.8 % (15-50); MCH 32.3 pg (26.0-34.0); MCV 98.1 fL (80.0-100.0); MEAN PLATELET VOLUME 11.7 fL (7.4-10.4); NEUTROPHILS 42.7 % (40-80); PLATELET COUNT 112 10x3/uL (130-400); RBC 3.62 10x6/uL (4.20-6.10); RDW 14.1 % (11.5-14.5); WBC 4.6 10x3/uL (4.8-10.8)
[2017-10-07 13:43] LABS: CKMB 64.2 U/L (0.0-3.6); CREATINE KINASE 162 UL (21-232); TROPONIN-I 0.047 ng/mL (0.000-0.060)
== END 2017-10-07 15:27 | disposition home or self-care (01) ==
LOC: D.ER 12:27
PROVIDERS: Emergency Medicine
DX: I50.9 Heart failure, unspecified (principal); E11.9 Type 2 diabetes mellitus without complications; M79.661 Pain in right lower leg

== ENCOUNTER 2017-12-31 11:24 | Outpatient (CLI) | payer MEDICARE, MEDICAID ==
[~2017-12-31] VITALS: Ht 185.4 cm; Wt 121.4 kg
--- NOTE | ~2017-12-31 | HEMODYNAMI ---
PATIENT:RIGOBERTO JOHNSON MEDICAL RECORD: [id number] : 43 LOCATION:[facility] ADMISSION DATE: 12/31/17 Generatedon:12/31/201713:46 Patient name: RIGOBERTO JOHNSON Patient #: [id number] SSN: : 1945 Date of study: 12/31/2017 Page: Of Hemodynamic Procedure Report Patient Data Patient Demographics Procedure consent was obtained First Name: RIGOBERTO Gender: Male Last Name: ELIZABETH : 1945 Middle Initial: RAY Age: 72 year(s) Patient #: [id number] Race: Unknown Additional ID: [id number] Contact details Address: [address] [place] [address] State: [place] City: [place] Zip code: [address] Past Medical History Allergies: No known allergies Admission Admission Data Admission Date: 12/31/2017 Admission Time: 11:24 Arrival Date: 12/31/2017 Arrival Time: 13:30 Admit Source: Other Insurance Payor: Medicare Height (in.): 73 BSA: 2.42 (m2) Height (cm.): 185.42 BMI: 34.7 (kg/m2) Weight (lbs.): 263 Weight (kg.): 119.29 Lab Results Lab Result Date: 12/31/2017 Lab Result Time: 0:00 Biochemistry Name Units Result Min Max BUN mg/dl 26 --(----)-* 7 18 Creatinine mg/dl 1.6 --(----)-* 0.6 1.3 Procedure Procedure Types Cath Procedure Diagnostic Procedure LHC LH w/Coronaries Procedure Description Procedure Date Procedure Date: 12/31/2017 Procedure Start Time: 13:34 Procedure End Time: 13:44 Procedure Staff Name Function Diego Marion MD Performing Physician Ivette Syed RT Monitor Karan Barajas RN Nurse Adriana Leone RT Scrub Procedure Data Cath Procedure Fluoroscopy Diagnostic fluoroscopy Total fluoroscopy Time: 2.3 time: 2.3 min min Diagnostic fluoroscopy Total fluoroscopy dose: 788 dose: 788 mGy mGy Contrast Material Contrast Material Type Amount (ml) Isovue 300 61 Entry Location Entry Primary Successful Side Size Upsize Upsize Entry Closure Johnson ccessful Closure Location (Fr) 1 (Fr) 2 (Fr) Remarks Device Remarks Radial Right 6 Fr Mechanical artery Short Compression Estimated blood loss: 5 ml Diagnostic catheters Device Type Used For End Catheter Placement DIAGNOSTIC [place] 110cm 5 Multi-vessel Fr catheter ([id number]) Angiography Procedure Complications No complications Procedure Medications Medication Administration Route Dosage 0.9% NaCl I.V. 100 ml/hr Oxygen etCO2 Nasal cannula 2 l/min Heparin Flush Bag added to field 2 bags (1000units/500ml NS) Lidocaine 2% added to field 20 Radial Cocktail added to field 1 syringe (Verapomil 2mg/Nitro 400mcg/Heparin 1500units) Versed I.V. 1 mg Fentanyl I.V. 50 mcg Radial Cocktail I.A. 1 syringe (Verapomil 2mg/Nitro 400mcg/Heparin 1500units) Versed I.V. 1 mg Fentanyl I.V. 50 mcg Hemodynamics Rest BSA: 2.42 (m2) O2 Consumption: Estimated: 274.24 (ml/min) O2 Consumption indexed : Estimated:113.32 (ml/min/m) Heart Rate: 65 (bpm) Pressure Samples Time Site Value (mmHg) Purpose Heart Use Rate(bpm) 13:38 LV 110/14,18 Snapshot 72 Gradients Valve Time Site Site Mean SEP/DFP Peak To Heart Use 1 2 (mmHg) (sec/min) Peak Rate (mmHg) (bpm) Aortic 13:39 LV AO 73 Snapshots Pre Cath Intra NCS Post Cath Vital Signs Time Heart Resp SPO2 etCO2 NIBP (mmHg) Rhythm Pain Sedation Rate (ipm) (%) (mmHg) Status Level (bpm) 13:17:14 65 14 98 28 137/73(101) NSR 0 (11) 10(A) , No pain 13:21:58 65 12 97 33.3 119/66(96) NSR 0 (11) 10(A) , No pain 13:26:39 59 15 98 27.2 123/74(99) NSR 0 (11) 10(A) , No pain 13:31:22 61 14 96 33.3 131/75(100) NSR 0 (11) 10(A) , No pain 13:36:08 66 14 98 30.2 128/77(111) NSR 0 (11) 9(A) , No pain 13:40:55 68 11 94 32.5 101/56(74) NSR 0 (11) 9(A) , No pain Medications Time Medication Route Dose Verified Delivered Reason Notes Effectiveness by by 13:16:58 0.9% NaCl I.V. 100 Karan Karan Per ml/hr Karl Barajas physician RN RN 13:17:51 Oxygen etCO2 2 l/min Karan Karan Per Nasal Karl Barajas physician cannula RN RN 13:18:05 Heparin Flush added 2 bags Karan Karan used for Bag to Lorigan Karl procedure (1000units/500ml field RN RN NS) 13:18:19 Lidocaine 2% added 20ml Karan Karan for local to vial Lorigan Lorigan anesthetic field MCGOVERN RN 13:18:39 Radial Cocktail added 1 Karan Karan used for (Verapomil to syringe Lorigan Lorigan procedure 2mg/Nitro field MCGOVERN RN 400mcg/Heparin 1500units) 13:24:55 Versed I.V. 1 mg Karan Karan for sedation Karl Barajas RN RN 13:25:18 Fentanyl I.V. 50 mcg Karan Karan for sedation Karl Barajas RN RN 13:35:21 Radial Cocktail I.A. 1 Karan Diego for (Verapomil syringe Lorigan Sanam vasodilation 2mg/Nitro FROILAN MIRANDA 400mcg/Heparin 1500units) 13:36:19 Versed I.V. 1 mg Karan Karan for sedation Karl Barajas RN RN 13:36:28 Fentanyl I.V. 50 mcg Karan Karan for sedation Karl Barajas RN sap payroll consultant Log Time Note 12:58:59 Time tracking: Regular hours (M-F 7:00 - 5:00) 12:59:03 Plan of Care:Hemodynamics will remain stable., Cardiac rhythm will remain stable., Comfort level will be maintained., Respiratory function will remain adequate., Patient/ family verbilizes understanding of procedure., Procedure tolerated without complication., Recovers from procedure without complications.. 12:59:09 Adriana Leone RT(R) sent for patient. Start room use. 13:00:20 Diagnostic Cath Status : Elective 13:00:55 Admit Source: Other 13:00:58 Arrival Date: 12/31/2017 1:30:00 PM 13:01:11 Insurance Payor : Medicare 13:01:20 Patient Height : 73 inches 13:01:26 Patient Weight : 263 lbs 13:04:24 Lab Result : BUN 26 mg/dl 13:04:24 Lab Result : Creatinine 1.6 mg/dl 13:04:38 Patient received from Pre/Post Procedure Room to CCL 2 Alert and oriented. Tansferred to table in Supine position. 13:04:39 Warm blankets applied, and noreen hugger turned on for patient comfort. 13:04:40 Correct patient and procedure confirmed by team. 13:04:41 Signed procedure consent form obtained from patient. 13:04:44 ECG and BP/O2 sat monitors applied to patient. 13:16:13 Vital chart was started 13:16:14 Baseline sample Acquired. 13:16:19 Rhythm: sinus rhythm 13:16:21 Full Disclosure recording started 13:16:25 H&P Date Dictated: 12/31/2017 Within 30 days and on chart., H&P Addendum completed by physician on day of procedure. (MUST COMPLETE FOR ALL OUTPATIENTS). 13:16:27 Pre-procedure instructions explained to patient. 13:16:28 Pre-op teaching completed and patient verbalized understanding. 13:16:29 Family in waiting room. 13:16:44 Patient NPO since Midnight. 13:16:49 Is the patient allergic to Iodine/contrast media? No. 13:16:50 Was the patient premedicated? No 13:16:52 Is patient on blood thinner?Yes 13:16:56 ACC The patient was administered the following blood thiners within the last 24 hours: ACCPlavix 13:16:58 0.9% NaCl 100 ml/hr I.V. was administered by Karan Barajas RN; Per physician; 13:16:58 Patient diabetic? Yes. 13:16:59 If diabetic: On Metformin? No 13:17:01 Previous problem with sedation/anesthesia? No ? 13:17:04 Snore? Yes 13:17:05 Sleep apnea? Yes 13:17:06 Deviated septum? No 13:17:07 Opens mouth fully? Yes 13:17:08 Sticks out tongue? Yes 13:17:13 Airway obstruction? Yes asthma 13:17:51 Oxygen 2 l/min etCO2 Nasal cannula was administered by Karan Barajas RN; Per physician; 13:18:05 Heparin Flush Bag (1000units/500ml NS) 2 bags added to field was administered by Karan Barajas RN; used for procedure; 13:18:19 Lidocaine 2% 20ml vial added to field was administered by Karan Barajas RN; for local anesthetic; 13:18:39 Radial Cocktail (Verapomil 2mg/Nitro 400mcg/Heparin 1500units) 1 syringe added to field was administered by Karan Barajas RN; used for procedure; 13:19:58 Dentures? No ? 13:20:02 Pre procedure: right dorsailis pedis pulse 2+ Normal; easily identifiable; not easily obliterated 13:20:05 Pre procedure: left dorsailis pedis pulse 2+ Normal; easily identifiable; not easily obliterated 13:20:09 Patient pain scale 0/10 ?. 13:20:15 IV patent on arrival in left forearm with 0.9% NaCl at [facility]. 13:20:18 Lab results completed and on chart. 13:20:22 Right Radial & Right Groin area was prepped with chlora-prep and draped in sterile fashion 13:20:24 Alarms reviewed by R. N. 13:20:24 Sharps counted by scrub and verified by R.N. 13:20:31 Physician arrived 13:20:32 --------ALL STOP TIME OUT------ 13:20:32 Final Timeout: patient, procedure, and site verified with staff and physician. All members of the team are in agreement. 13:20:35 Right Radial & Right Groin site verified by team. 13:20:38 Physical assessment completed. ASA score P 2 - A patient with mild systemic disease as per Diego Marion MD. 13:20:42 Sedation plan: IV Moderate Sedation Medication:Versed, Fentanyl 13:20:49 Use device set Radial Dx or PCI 13:20:50 ACIST Syringe (76073) opened to sterile field. 13:20:50 Medline Cath Pack ([id number]) opened to sterile field. 13:20:51 Bag Decanter (2002S) opened to sterile field. 13:20:51 DIAGNOSTIC WIRE .035 260cm J wire (359314) opened to sterile field. 13:20:52 ACIST Hand Control (08412) opened to sterile field. 13:20:52 ACIST Manifold (20232) opened to sterile field. 13:20:53 Tegaderm 4 x 4 (1626W) opened to sterile field. 13:20:59 MBrace Wrist Support ([id number]) opened to sterile field. 13:21:01 SHEATH 6Fr Prelude Radial ([id number]) opened to sterile field. 13:24:55 Versed 1 mg I.V. was administered by Karan Barajas RN; for sedation; 13:25:18 Fentanyl 50 mcg I.V. was administered by Karan Barajas RN; for sedation; 13:25:37 Zero performed for pressure channel P1 13:25:45 Zero performed for pressure channel P1 13:34:33 Procedure started. 13:34:46 Local anesthetic to right radial artery with Lidocaine 2% by Diego Marion MD.INITIAL ACCESS ONLY 13:35:01 A 6 Fr Short sheath was inserted into the Right Radial artery 13:35:21 Radial Cocktail (Verapomil 2mg/Nitro 400mcg/Heparin 1500units) 1 syringe I.A. was administered by Diego Marion MD; for vasodilation; 13:36:19 Versed 1 mg I.V. was administered by Karan Barajas RN; for sedation; 13:36:28 Fentanyl 50 mcg I.V. was administered by Karan Barajas RN; for sedation; 13:38:33 GLIDE WIRE ANGLE 260cm (VG6578) opened to sterile field. 13:38:55 A DIAGNOSTIC [place] 110cm 5 Fr catheter (936714) was advanced over the wire and used for Multi-vessel Angiography. 13:39:06 LV hemodynamics recorded. 13:39:07 LV gram done using STEVENSON 13:39:09 Injector settings: Ml/sec: 5, Volume: 15, 13:39:17 EF : 45 % 13:39:20 LCA angiography performed. 13:39:23 Injector settings: Ml/sec: 3, Volume: 6, 13:41:00 RCA angiography performed. 13:41:04 Injector settings: Ml/sec: 3, Volume: 6, 13:41:47 Catheter removed. 13:42:34 TR BAND Large ([id number]) opened to sterile field. 13:42:47 Sheath removed intact; hemostasis achieved with Mechanical Compression to the Right Radial artery. 13:42:50 Procedure ended.(Physican Out) 13:43:00 Fluoroscopy time 02.30 minutes. 13:43:05 Fluoroscopy dose: 788 mGy 13:43:05 Flurop Dose total: 788 13:43:09 Contrast amount:Isovue 300 61ml. 13:43:11 Sharps counted by scrub and verified by R.N. 13:43:41 TR band inflated with 10cc of air. 13:43:43 Insertion/operative site no bleeding no hematoma. 13:43:47 Post right radial artery:stable 13:43:49 Post Procedure Pulses reassessed and unchanged 13:43:51 Post procedure rhythm: unchanged. 13:43:54 Estimated blood loss: 5 ml 13:43:56 Post procedure instruction explained to patient.Patient verbalizes understanding. 13:43:56 Patient needs reinforcement of post procedure teaching. 13:44:07 Procedure and supply charges have been captured, reviewed, submitted and are correct. 13:44:12 Procedure Complication : No complications 13:44:15 Vital chart was stopped 13:44:15 See physician's report for complete and final results. 13:44:19 Report given to Pre/Post Procedure Room. 13:44:22 Patient transfered to Pre/Post Procedure Room with Stretcher. 13:44:26 Procedure ended. 13:44:26 Full Disclosure recording stopped 13:44:30 End room use (Document Last) Device Usage Item Name Manufacture Quantity Catalog Number Hospital Part Current M inimal Lot# / Charge Number Stock Stock Serial# Code ACIST Syringe Acist 1 48764 118103 645739 [id number] 2 0 (88786) [employer] Medline Cath Cardinal 1 [id number] 009324 37006 297216 5 Pack Health ([id number]) Bag Decanter Microtek 1 [id number] 04189 029076 5 () Medical Inc. DIAGNOSTIC WIRE St Vel 1 456374 725516 076668 403308 3 0 .035 260cm J wire (995528) ACIST Hand Acist 1 15280 889398 002771 878428 5 Control (20288) [employer] Inc ACIST Manifold Acist 1 10982 418360 423033 534914 5 (17703) [employer] Systems Inc Tegaderm 4 x 4 3M 1 1626W 946119 028188 973736 5 (1626W) MBrace Wrist Advanced 1 140-0250-00 342578 47935 857615 5 Support Vascular ([id number]) Dynamics SHEATH 6Fr Merit 1 [id number] 640312 453421 682716 5 Prelude Radial Medical ([id number]) DIAGNOSTIC Terumo 1 40-0374 312601 163590 327552 5 [place] 110cm 5 Fr catheter (484580) GLIDE WIRE Terumo 1 MU7536 919427 077217 510637 5 ANGLE 260cm (VV8091) TR BAND Large Terumo 1 [id number] 036860 404092 906423 4 0 ([id number]) Signature Audit Waddy Stage Time Signature Unsigned Intra-Procedure 12/31/2017 Ivette Syed 1:46:39 PM RT(R) Signatures Monitor : Ivette Syed RT Signature : Date : Time : [place] [place] [address]
--- NOTE | ~2017-12-31 | OP ---
PATIENT NAME: RIGOBERTO JOHNSON MEDICAL RECORD: [id number] :43 LOCATION:D[facility] ADMISSION DATE: SURGEON: BUTCH ACOSTA MD DATE OF OPERATION: 12/31/2017 PROCEDURE: Left heart catheterization, selective coronary angiography, right radial approach. CATHETERS: Radial sheath, [place] catheter. The procedure was well tolerated. The patient was returned to russo, sheath removed. TR band was placed. FINDINGS: Left ventriculography in the 30-degree STEVENSON view shows anterior, anteroapical hypokinesis. Overall, LV function, minimally reduced 40-45%. CORONARY ANATOMY: 1. Left main: Left main is free of disease. 2. LAD: Area of previous stenting is widely patent with no evidence of restenosis or disease. 3. Circumflex: Huge dominant circ, free of disease. 4. Right coronary artery: Rudimentary. IMPRESSION: No evidence of restenosis. 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 Continue medical management. TRANSINT:[id number] Voice Confirmation ID: [id number] DOCUMENT ID: [id number] BUTCH ACOSTA MD at 1132 CC: [id number] DICTATION DATE: 12/31/17 1353 TEMPLATE LAYOUT WORKER: 12/31/17 1434 DEP CLI 12/31/17 [place] [address] [facility] [place] [address]
[2017-12-31] MEDS ORDERED: PLAVIX75 MG PO (11:39)
[2017-12-31] MEDS ORDERED: TOPROL XL25 MG PO (11:40)
[2017-12-31] MEDS ORDERED: ALDACTONE25 MG PO (11:41)
[2017-12-31 11:56] LABS: BASOPHILS 0.4 % (0-2); EOSINOPHILS 7.1 % (0-7); HEMATOCRIT 39.2 % (42.0-54.0); HEMOGLOBIN 13.1 g/dL (13.5-17.5); LYMPHOCYTES 35.6 % (15-50); MCH 33.2 pg (26.0-34.0); MCHC 33.4 g/dL (31.0-37.0); MCV 99.2 fL (80.0-100.0); MEAN PLATELET VOLUME 11.5 fL (7.4-10.4); MONOCYTES 9.8 % (2-11); NEUTROPHILS 47.1 % (40-80); PLATELET COUNT 112 10x3/uL (130-400); RBC 3.95 10x6/uL (4.20-6.10); RDW 14.2 % (11.5-14.5); WBC 5.6 10x3/uL (4.8-10.8)
[2017-12-31 11:57] VITALS: BP 142/68; Ht 185.4 cm; Wt 121.4 kg
[2017-12-31 12:04] LABS: ANION GAP 12.5 mmol/L (8-16); CALCIUM 9.2 mg/dL (8.5-10.1); CARBON DIOXIDE 24.9 mmol/L (21.0-32.0); CREATININE - SERUM 1.6 mg/dL (0.6-1.3); POTASSIUM - SERUM 4.4 mmol/L (3.5-5.1)
== END 2017-12-31 16:09 | disposition home or self-care (01) ==
LOC: D.CATH 11:24
PROVIDERS: Internal Medicine Interventional Cardiology
DX: I25.119 Atherosclerotic heart disease of native coronary artery with unspecified angina pectoris (principal); Z95.5 Presence of coronary angioplasty implant and graft; I42.9 Cardiomyopathy, unspecified; Z01.812 Encounter for preprocedural laboratory examination

== ENCOUNTER 2018-04-23 11:58 | Emergency (ER) | payer MEDICARE, MEDICAID ==
[~2018-04-23] VITALS: Ht 188 cm; Wt 122.3 kg
[~2018-04-23 11:58] MED LIST changes: +ALDACTONE25 MG PO; +PLAVIX75 MG PO; +TOPROL XL25 MG PO
[2018-04-23 12:00] VITALS: Ht 188 cm; Wt 122.3 kg
[2018-04-23] MEDS ORDERED: ZANAFLEX2 M1 PO (12:11)
[2018-04-23] MEDS ORDERED: LISINOPRIL10 MG PO (12:11)
[2018-04-23] MEDS ORDERED: VOLTAREN75 MG PO (12:12)
[2018-04-23] MEDS ORDERED: BAYER CHEWABLE81 MG PO (12:12)
[2018-04-23] MEDS ORDERED: ULTRAM50 MG PO (12:13)
[2018-04-23] MEDS ORDERED: NOVOLOG100 U/M1 SC (12:15)
[2018-04-23] MEDS ORDERED: CYCLOBENZAPRINE10 MG PO (12:15)
[2018-04-23 12:33] LABS: BASOPHILS 0.5 % (0-2); HEMATOCRIT 35.6 % (42.0-54.0); IMMATURE GRANULOCYTES 0.2 % (0-5); LYMPHOCYTES 34.6 % (15-50); MCH 33.4 pg (26.0-34.0); MCHC 33.7 g/dL (31.0-37.0); MCV 99.2 fL (80.0-100.0); MEAN PLATELET VOLUME 10.8 fL (7.4-10.4); MONOCYTES 11.1 % (2-11); NEUTROPHILS 44.6 % (40-80); PLATELET COUNT 94 10x3/uL (130-400); RBC 3.59 10x6/uL (4.20-6.10); RDW 14.1 % (11.5-14.5); WBC 4.4 10x3/uL (4.8-10.8)
[2018-04-23 12:58] LABS: ALBUMIN 2.8 g/dL (3.4-5.0); ALKALINE PHOSPHATASE 72 U/L (46-116); ALT (SGPT) 35 U/L (10-68); BILIRUBIN - TOTAL 0.67 mg/dL (0.2-1.3); CALC OSMOLALITY 293 mosm/kg (275-300); CALCIUM 8.3 mg/dL (8.5-10.1); CARBON DIOXIDE 22.5 mmol/L (21.0-32.0); CHLORIDE - SERUM 107 mmol/L (98-107); POTASSIUM - SERUM 4.4 mmol/L (3.5-5.1); PROTEIN - SERUM 7.2 g/dL (6.4-8.2); SODIUM 139 mmol/L (136-145); UREA NITROGEN 34 mg/dL (7-18); eGFR NON AFRICAN AMERICAN 35 mL/min (90-120)
[2018-04-23 13:00] LABS: GLUCOSE 239 mg/dL (74-106)
[2018-04-23 13:14] LABS: LIPASE 193 U/L (73-393); PRO BNP 139 pg/mL (0-125)
[2018-04-23 13:16] LABS: TROPONIN-I < 0.017 ng/mL (0.000-0.060)
[2018-04-23 15:19] VITALS: BP 134/57
== END 2018-04-23 15:20 | disposition home or self-care (01) ==
LOC: D.ER 11:58
PROVIDERS: Family Medicine
DX: R07.89 Other chest pain (principal); R06.09 Other forms of dyspnea; E11.9 Type 2 diabetes mellitus without complications; I10 Essential (primary) hypertension

== ENCOUNTER → 2019-02-22 17:23 | Outpatient (CLI) | payer MEDICARE, MEDICAID ==
[2018-04-23 12:00] VITALS: BMI 34.6
[~2019-02-22 17:23] MED LIST changes: +BAYER CHEWABLE81 MG PO; +CYCLOBENZAPRINE10 MG PO; +NOVOLOG100 U/M1 SC; +ULTRAM50 MG PO; +VOLTAREN75 MG PO; +ZANAFLEX2 M1 PO
[2019-02-22 18:49] LABS: ANION GAP 15.6 mmol/L (8-16); CALCIUM 9.4 mg/dL (8.5-10.1); CHOL - HDL RATIO 4.5 ratio (2.3-4.9); CREATININE - SERUM 1.7 mg/dL (0.6-1.3); LDL-HDL RATIO 2.6 ratio (1.5-3.5); POTASSIUM - SERUM 5.6 mmol/L (3.5-5.1)
== END | disposition home or self-care (01) ==
LOC: D.LABREF 17:23
PROVIDERS: ATTEND Nurse Practitioner
DX: I25.10 Atherosclerotic heart disease of native coronary artery without angina pectoris (principal); I10 Essential (primary) hypertension

== ENCOUNTER → 2019-03-01 08:57 | Outpatient (CLI) | payer MEDICARE, MEDICAID ==
[2018-04-23 12:00] VITALS: BMI 34.6
--- NOTE | 2019-03-04 09:47 | EC ---
PATIENT:RIGOBERTO JOHNSON DATE OF SERVICE: 03/01/19 SEX: M MEDICAL RECORD: [id number] DATE OF : 43 [facility] AGE [facility] PAT[facility]: 73 ADMISSION DATE: 03/01/19 REFERRING PHYSICIAN: INTERPRETING PHYSICIAN: BUTCH ACOSTA MD ECHOCARDIOGRAM REPORT ECHO CHARGES 4 ECHO COMPLETE Date: 03/01/19 CLINICAL DIAGNOSIS: CAD/AOV SCLEROSIS ECHOCARDIOGRAPHIC MEASUREMENTS (adult normal given) AC root (d.<3.7cm) 2.9 cm LV Septum d (<1.2 cm> 1.9 cm Valve Excursion 1.5 cm LV Septum (systole) 2.0 cm Left Atria (s.<4.0cm> 3.8 cm LVPW d(<1.2cm) 1.7 cm RV (d.<2.3cm) 3.9 cm LVPW (sytole) 2.3 cm LV diastole(<5.6CM) 5.1 cm MV E-F(>70mm/sec) cm LV systole 3.5 cm LVOT Diameter 1.8 cm MV exc.(>10mm) 11.0 cm Est.ejection fraction (50-75%) % DOPPLER: LVIT cm/sec A 66.0 cm/sec E 85.0 cm/sec LA cm/sec RVSP 30 mmHg LVOT 131 cm/sec AOP1/2T m/s Asc. Ao 174 cm/sec RVOT 86 cm/sec RA cm/sec PA 118 cm/sec AV Gradient Peak 12.12mmHg AV Mean 6.73 mmHg AV Area 1.8 cm MV Gradient Peak 4.01 mmHg MV Mean 1.86 mmHg MV Area cm COMMENTS: Supervisor Customer Services: 2 PAUL MEDINA Junior Software Developer: 3 Dr. Ferris TAPE# PACS Pericardial Effusion N DATE OF SERVICE: Adequate 2D, color flow, spectral Doppler, and M-Mode. LVH is present. LV internal dimension is normal. Wall motion is normal. EF is greater than or equal to 55%. Aortic valve sclerosis without evidence of stenosis by Doppler interrogation. Left atrium normal at 3.9 cm. Mitral valve shows no prolapse. Trace MR. Right-sided chambers grossly normal. Trace TR. TRANSINT:[id number] Voice Confirmation ID: [id number] DOCUMENT ID: [id number] ECHOCARDIOGRAM REPORT [id number] RIGOBERTO JOHNSON,BUTCH Lund MD at 0947 CC: [id number] DICTATION DATE: 03/02/19 1353 PREFORMING MACHINE OPERATOR: 03/02/19 1422 DEP CLI 03/01/19 [facility] [address] [place] [address]
== END | disposition home or self-care (01) ==
LOC: D.HCCARDIO 08:57
PROVIDERS: ATTEND Internal Medicine Interventional Cardiology
DX: I25.10 Atherosclerotic heart disease of native coronary artery without angina pectoris (principal)

== ENCOUNTER → 2019-09-26 08:22 | Outpatient (CLI) | payer MEDICARE ==
[2018-04-23 12:00] VITALS: BMI 34.6
--- NOTE | ~2019-09-26 | EC ---
PATIENT:RIGOBERTO JOHNSON DATE OF SERVICE: 09/26/19 SEX: M MEDICAL RECORD: [id number] DATE OF : 43 [facility] AGE OF PATIENT: 73 ADMISSION DATE: 09/26/19 REFERRING PHYSICIAN: INTERPRETING PHYSICIAN: BUTCH ACOSTA MD ECHOCARDIOGRAM REPORT ECHO CHARGES 4 ECHO COMPLETE Date: 09/26/19 CLINICAL DIAGNOSIS: CAD/ASSESS TRICUSPID REGURG ECHOCARDIOGRAPHIC MEASUREMENTS (adult normal given) AC root (d.<3.7cm) 3.6 cm LV Septum d (<1.2 cm> 1.4 cm Valve Excursion 1.6 cm LV Septum (systole) 1.6 cm Left Atria (s.<4.0cm> 3.6 cm LVPW d(<1.2cm) 1.5 cm RV (d.<2.3cm) 3.4 cm LVPW (sytole) 1.6 cm LV diastole(<5.6CM) 5.0 cm MV E-F(>70mm/sec) cm LV systole 3.7 cm LVOT Diameter 1.9 cm MV exc.(>10mm) 1.7 cm Est.ejection fraction (50-75%) % DOPPLER: LVIT cm/sec A 61.0 cm/sec E 86.0 cm/sec LA cm/sec RVSP 33 mmHg LVOT 101 cm/sec AOP1/2T m/s Asc. Ao 106 cm/sec RVOT 115 cm/sec RA cm/sec PA 116 cm/sec AV Gradient Peak 11.75mmHg AV Mean 5.62 mmHg AV Area 2.6 cm MV Gradient Peak 4.05 mmHg MV Mean 1.58 mmHg MV Area cm COMMENTS: People Greeter: 2 PAUL MEDINA Process Cheese Cooker: 3 Dr. Ferris TAPE# PACS Pericardial Effusion N DATE OF SERVICE: Adequate 2D, color flow imaging, spectral Doppler, and M-Mode. LVH is present. LV internal dimensions are normal. Wall motion is normal. EF is greater than or equal to 55%. Aortic valve is sclerotic. No evidence of stenosis by Doppler interrogation. Left atrium is normal at 3.6. Mitral valve shows no prolapse. Trace MR. Right-sided chambers are grossly normal. Trace TR. ECHOCARDIOGRAM REPORT [id number] RIGOBERTO JOHNSON TRANSINT:[id number] Voice Confirmation ID: [id number] DOCUMENT ID: [id number] BUTCH ACOSTA MD CC: [id number] DICTATION DATE: 09/27/19 1317 MIDDLEWARE DEVELOPER: 09/27/19 1514 DEP CLI 09/26/19 [place] [id number] [place] [id number]
== END | disposition home or self-care (01) ==
LOC: D.HCCECHO 08:22
PROVIDERS: ATTEND Internal Medicine Interventional Cardiology
DX: I25.10 Atherosclerotic heart disease of native coronary artery without angina pectoris (principal)